=== PATIENT | female | born 1990 | race Caucasian/White ===

== ENCOUNTER 2018-02-26 05:49 | Emergency (ER) | payer BC ==
[2018-02-26 06:24] LABS: CHLORIDE,CL 106 mEq/L (98-106); SODIUM,NA 144 mEq/L (136-145)
[2018-02-26] MEDS ORDERED: Ketorolac 30 MG/ML SDV IVPUSH ONE (06:39)
[2018-02-26] MEDS ORDERED: Sodium Chloride 0.9% 1,000 ML IV ONE (06:39)
--- NOTE | 2018-02-26 06:43 | EDM.PDOC ---
ED HPI GENERAL MEDICAL PROBLEM - General Chief Complaint: Abdominal Pain Stated Complaint: mid epigastric pain Time Seen by Provider: 02/26/18 06:30 - History of Present Illness INITIAL COMMENTS - FREE TEXT/NARRATIVE: Saskia is a 27 year old 4 week female who presents to the ED with c/o mid epigastric abdominal pain that comes in waves and radiates to her right flank area. She reports the pain first started at 1 am. She reports after that she was able to go back to sleep. She then reports the pain woke her up at 4 am and hasn't gone away since. She reports that when the pain "comes in waves" it is a sharp stabbing pain. She also reports there is a constant dull ache after these waves. She does report she had some nausea and 1 emesis around 0500. Denies any fever or chills. Has also had some diarrhea. Does report she has both her appendix and gallbladder. Did not struggle with GERD during . Has never had kidney stones. She does report she is her 4 week old twins. She reports she was on antibiotics for mastitis and her milk supply has decreased dramatically since. Onset: Today, Sudden Onset Date: 02/26/18 Onset Time: 01:00 Duration: Colic, Constant Location: Reports: Abdomen Quality: Reports: Ache, Dull, Stabbing Severity: Severe Associated Symptoms: Reports: Nausea/Vomiting. Denies: Confusion, Chest Pain, Cough, cough w sputum, Diaphoresis, Fever/Chills, Headaches, Loss of Appetite, Malaise, Rash, Seizure, Shortness of Breath, Syncope, Weakness Middle Epigastric Pain Score (Numeric/FACES): 5 - Related Data Allergies Allergy/AdvReac Type Severity Reaction Status Date / Time No Known Allergies Allergy Verified 02/26/18 05:58 Home Meds: Home Meds Cefuroxime Axetil [Cefuroxime] 500 mg PO BID 5 Days #10 tablet 02/26/18 [Rx] Pnv No.122/Iron/Folic Acid [ Multi Tablet] 1 each PO DAILY 02/26/18 [ History] Past Medical History [employer] DELIVERY [employer]IST History: Reports: - Past Surgical History Musculoskeletal Surgical History: Reports: Arthroscopic Knee Social & Family History - Tobacco Use Smoking Status *Q: Never Smoker - Caffeine Use Caffeine Use: Reports: None - Recreational Drug Use Recreational Drug Use: No ED ROS GENERAL - Review of Systems Review Of Systems: See Below Constitutional: Denies: Fever, Chills, Weakness, Fatigue, Decreased Appetite HEENT: Reports: No Symptoms Respiratory: Reports: No Symptoms. Denies: Shortness of Breath, Wheezing, Pleuritic Chest Pain, Cough, Sputum Cardiovascular: Reports: No Symptoms. Denies: Chest Pain, Dyspnea on Exertion, Edema, Lightheadedness, Palpitations, Syncope Endocrine: Reports: No Symptoms GI/Abdominal: Reports: Abdominal Pain, Diarrhea, Nausea, Vomiting. Denies: Black Stool, Constipation, Decreased Appetite, Distension, Hematemesis, Mucous in Stool : Reports: No Symptoms. Denies: Dysuria, Frequency, Urgency Musculoskeletal: Reports: No Symptoms Skin: Reports: No Symptoms Neurological: Reports: No Symptoms Psychiatric: Reports: No Symptoms ED EXAM, GI/ABD - Physical Exam Exam: See Below Exam Limited By: No Limitations General Appearance: Alert, WD/WN, Moderate Distress Head: Atraumatic, Normocephalic Respiratory/Chest: No Respiratory Distress, Lungs Clear, Normal Breath Sounds, No Accessory Muscle Use, Chest Non-Tender Cardiovascular: Normal Peripheral Pulses, Regular Rate, Rhythm, No Edema, No Gallop, No JVD, No Murmur, No Rub GI/Abdominal Exam: Normal Bowel Sounds, Soft, No Organomegaly, No Distention, No Abnormal Bruit, Tender (epigastric, RUQ and RLQ) Back Exam: Normal Inspection, Full Range of Motion. No: CVA Tenderness (L), CVA Tenderness (R) Extremities: Normal Inspection, Normal Range of Motion, Non-Tender, Normal Capillary Refill, No Pedal Edema Neurological: Alert, Oriented, CN II-XII Intact, Normal Cognition, Normal Gait, Normal Reflexes, No Motor/Sensory Deficits Psychiatric: Normal Affect, Normal Mood Skin Exam: Warm, Dry, Intact, Normal Color, No Rash Lymphatic: No Adenopathy Course - Vital Signs Last Recorded V/S: Last Vital Signs Temp 95.4 F 02/26/18 05:50 Pulse 105 H 02/26/18 05:50 Resp 16 02/26/18 05:50 BP 119/81 02/26/18 05:50 Pulse Ox 97 02/26/18 05:50 - Orders/Labs/Meds Orders: Active Orders 24 hr Category Date Time Status Abdomen Pelvis w Cont [CT] Stat Exams 02/26/18 06:56 Taken UA W/MICROSCOPIC [URIN] Stat Lab 02/26/18 06:41 Ordered Labs: Laboratory Tests 02/26/18 02/26/18 02/26/18 Range/Units 06:05 06:05 06:41 WBC 12.9 H (5.0-10.0) 10^3/uL RBC 4.65 (4.00-5.50) 10^6/uL Hgb 12.8 (12.0-16.0) g/dL Hct 39.7 (37.0-47.0) % MCV 85.4 (82.0-94.0) fL MCH 27.5 (27.0-32.0) pg MCHC 32.2 L (33.0-38.0) g/dL RDW Coeff of Jonathon 14.9 (11.0-15.0) % Plt Count 350 (150-400) 10^3/uL Add Manual Diff Yes Neutrophils % (Manual) 65 (35-85) % Band Neutrophils % 4 (0-5) % Lymphocytes % (Manual) 18 L (21-55) % Monocytes % (Manual) 9 (2-12) % Eosinophils % (Manual) 2 (0-5) % Metamyelocytes % 2 % Absolute Neutrophils 8.90 H (1.80-7.00) 10^3/uL Lymphocytes # (Manual) 2.32 (1.00-4.80) 10^3/uL Monocytes # (Manual) 1.16 H (0.00-0.80) 10^3/uL Eosinophils # (Manual) 0.26 (0.00-0.45) 10^3/uL Sodium 144 (136-145) mEq/L Potassium 4.5 D (3.5-5.0) mEq/L Chloride 106 (98-106) mEq/L Carbon Dioxide 30 (21-32) mmol/L BUN 18 (7-18) mg/dL Creatinine 0.9 (0.6-1.0) mg/dL Est Cr Clr Drug Dosing 87.90 mL/min Estimated GFR (MDRD) > 60 (>=60) mL/min Glucose 106 H (75-99) mg/dL Calcium 8.5 (8.4-10.1) mg/dL Total Bilirubin 0.5 (0.0-1.0) mg/dL AST 15 (15-37) U/L ALT 21 (12-78) U/L Alkaline Phosphatase 113 (46-116) U/L C-Reactive Protein 4.8 H (0.2-0.8) mg/dL Total Protein 6.7 (6.4-8.2) g/dL Albumin 3.0 L (3.4-5.0) g/dL Urine Color Yellow (YELLOW) Urine Appearance Slightly cloudy (CLEAR) Urine pH 5.5 (4.5-8.0) Ur Specific Hewitt 1.020 (1.003-1.020) Urine Protein Negative (NEGATIVE) mg/dL Urine Glucose (UA) Negative (NEGATIVE) mg/dL Urine Ketones Negative (NEGATIVE) mg/dL Urine Occult Blood Large H (NEGATIVE) Urine Nitrite Negative (NEGATIVE) Urine Bilirubin Negative (NEGATIVE) Urine Urobilinogen 0.2 (0.2-1.0) EU/dL Ur Leukocyte Esterase Small H (NEGATIVE) Urine RBC 30-40 H (0-5) /HPF Urine WBC 5-10 H (0-5) /HPF Ur Squamous Epith Cells Occasional H (NOT SEEN) /HPF Urine Bacteria Occasional H (NOT SEEN) /HPF Meds: Medications Discontinued Medications Generic Name Dose Route Start Last Admin Trade Name Freq PRN Reason Stop Dose Admin Ceftriaxone Sodium 1 gm 02/26/18 07:50 02/26/18 07:53 Rocephin IVPUSH 02/26/18 07:51 1 gm ONETIME ONE Administration Sodium Chloride 1,000 mls @ 999 mls/hr 02/26/18 06:39 02/26/18 06:47 Normal Saline IV 02/26/18 07:39 999 mls/hr .BOLUS ONE Administration Iopamidol 100 ml 02/26/18 07:02 02/26/18 07:22 Isovue-300 (61%) IVPUSH 02/26/18 07:03 100 ml ONETIME ONE Administration Ketorolac Tromethamine 30 mg 02/26/18 06:39 02/26/18 06:48 Toradol IVPUSH 02/26/18 06:40 30 mg ONETIME ONE Administration - Radiology Interpretation Free Text/Narrative:: Normal appendix. Minimal free fluid in pelvis, likely reactive. No free air. Changes of distal small bowel. Moderate length segment of distal small bowel demonstrates circumferential wall thickening. CT Results Date: 02/26/18 CT Results Time: 08:00 - Re-Assessments/Exams Free Text/Narrative Re-Assessment/Exam: Discussed labs and CT results with patient. Departure - Departure Time of Disposition: 07:58 Disposition: Home, Self-Care 01 Condition: Good Clinical Impression: Bacterial enterocolitis - Discharge Information Prescriptions: Cefuroxime Axetil [Cefuroxime] 500 mg PO BID 5 Days #10 tablet Instructions: Food Choices to Help Relieve Diarrhea, Adult, Abdominal Pain, Adult, [id number] Referrals: Stephani Lacey MD [Primary Care Provider] - Forms: ED Department Discharge Additional Instructions: Ceftin 500 mg twice daily x 5 days Push fluids Tylenol or ibuprofen as needed for pain. Notify clinic if pain worsens or is not controlled with OTC pain medications Follow up with PCP for recheck - My Orders Last 24 Hours: My Active Orders 02/26/18 06:41 UA W/MICROSCOPIC [URIN] Stat 02/26/18 06:56 Abdomen Pelvis w Cont [CT] Stat - Assessment/Plan Last 24 Hours: My Active Orders 02/26/18 06:41 UA W/MICROSCOPIC [URIN] Stat 02/26/18 06:56 Abdomen Pelvis w Cont [CT] Stat
[2018-02-26] MEDS ORDERED: Iopamidol 612 MG/ML 100 ML Bottle IVPUSH ONE (07:02)
[2018-02-26] MEDS ORDERED: cefTRIAXone 1 GM Vial IVPUSH ONE (07:50)
== END 2018-02-26 08:09 | disposition home or self-care (01) ==
LOC: CC.ED 05:49
DX: O86.89 Other specified puerperal infections (principal); A04.9 Bacterial intestinal infection, unspecified
CPT/HCPCS: 36415; 74177; 80053; 81001; 85025; 86140; 99284; J0696; J1885; J7030; Q9967

== ENCOUNTER → 2018-04-19 | Day surgery (SDC) | payer BC ==
[~2018-04-19] MED LIST: Acetaminophen/oxyCODONE 325-5 MG Tab PO PRN; Dexamethasone 4 MG/ML SDV IV ONE; Glycopyrrolate 0.2 MG/ML SDV IVPUSH ONE; Ketorolac 30 MG/ML SDV IVPUSH ONE; Lactated Ringers 1,000 ML IV SCH; Morphine 2 MG/ML Syringe IVPUSH PRN; Neostigmine Methylsulfate 10 MG/10 ML MDV IV ONE; Ondansetron 4 MG/2 ML SDV IV ONE; Ondansetron 4 MG/2 ML SDV IVPUSH PRN; Propofol 200 MG/20 ML SDV IV ONE; Rocuronium 50 MG/5 ML Vial IV ONE; Sodium Chloride 0.9% 10 ML Syringe FLUSH PRN; Succinylcholine 200 MG/10 ML MDV IV ONE; ceFAZolin 1 GM Vial IVPUSH ONE; fentaNYL 100 MCG/2 ML SDV IV ONE
--- NOTE | 2018-04-19 16:59 | OR ---
DATE OF OPERATION: 04/19/2018 PREOPERATIVE DIAGNOSIS: CHRONIC CHOLECYSTITIS WITH SLUDGE. POSTOPERATIVE DIAGNOSIS: CHRONIC CHOLECYSTITIS WITH SLUDGE. SURGEON: Juan Luis Tse MD PROCEDURE: LAPAROSCOPIC CHOLECYSTECTOMY. ANESTHESIA: General. ESTIMATED BLOOD LOSS: Minimum. SPECIMEN: Gallbladder. INDICATIONS: This 27-year-old female had several attacks of right upper quadrant abdominal pain. By ultrasound, she has sludge within the gallbladder. Since delivery, she has had two episodes of pain that required emergency room visits. She now presents for cholecystectomy. FINDINGS: Normal exam, small thin-walled gallbladder. No stones present, but sludge was throughout the gallbladder. DESCRIPTION OF PROCEDURE: After adequate preparation, trocars were placed under direction vision. The patient abdomen was insufflated. The gallbladder was identified and elevated over the liver bed. The cystic triangle and structures were dissected free. The artery and the cystic duct triply clipped and divided. The gallbladder was then taken off the liver bed using sharp and cautery dissection. There was a small opening in the gallbladder. This was suctioned cleat to decompress the gallbladder and then the right upper quadrant was completely irrigated and suctioned clean. No other abnormalities were noted intra-abdominally. The abdomen was desufflated, the trocars were then removed, and skin closed with Vicryl. BPB/MODL /[id number]
--- NOTE | 2018-04-20 07:09 | PCM.SN ---
- Free Text/Narrative Note: Doing well this AM. Wounds clean and non tender. PO adequate. Pain controlled. Discharge instructions given. Can discharge today.
== END ==
LOC: CC.SDS 13:29
PROVIDERS: ATTEND Surgery
DX: K81.1 Chronic cholecystitis (principal); K82.8 Other specified diseases of gallbladder; I10 Essential (primary) hypertension; Z79.899 Other long term (current) drug therapy
CPT/HCPCS: 36415; 84703; A9270-GY; J0330; J0690; J1100; J1885; J2405; J2704; J2710; J3010; J3490; J7120